=== PATIENT | female | born 1965 | race African-American/Black ===

== ENCOUNTER 2018-03-27 09:41 | Emergency (ER) | payer MEDICAID ==
[~2018-03-27] VITALS: Ht 175.3 cm; Wt 109.0 kg
[2018-03-27] MEDS ORDERED: SODIUM CHLORIDE 0.9% 1,000 ML IV ONE (10:30)
[2018-03-27] MEDS ORDERED: LORAZEPAM 1MG TABLET PO ONE (10:30)
[2018-03-27 11:30] LABS: CLARITY URINE TURBID (CLEAR); KETONES URINE TRACE (NEGATIVE); LEUKOCYTE ESTERASE URINE 3+ (NEGATIVE); NITRITE URINE POSITIVE (NEGATIVE); OCCULT BLOOD URINE 3+ (NEGATIVE); PH URINE 6.5 (4.5-8.0); PROTEIN URINE 3+ (NEGATIVE); SPECIFIC GRAVITY URINE 1.026 (1.005-1.030)
[2018-03-27 11:38] LABS: COLOR URINE BROWN (YELLOW)
[2018-03-27 12:15] LABS: BASOPHILS % 0.4 % (0.0-2.0); EOSINOPHILS % 0.7 % (0.0-5.0); HEMATOCRIT. 40.2 % (36.0-48.0); HEMOGLOBIN. 13.2 g/dL (12.0-16.0); LYMPHOCYTES % 21.8 % (20.0-50.0); MEAN CORPUSCULAR HEMOGLOBIN 27.7 pg (28.0-32.0); MEAN CORPUSCULAR VOLUME 84.3 fL (81.0-99.0); MEAN PLATELET VOLUME 8.8 fl (7.4-10.4); MONOCYTES % 5.6 % (2.0-8.0); NEUTROPHILS % 71.5 % (40.0-76.0); PLATELET 279 x1000/uL (130-400); RED BLOOD CELL COUNT 4.77 mill/uL (4.2-5.4)
[2018-03-27 12:21] LABS: CHLORIDE 111 mEq/L (98-107)
[2018-03-27] MEDS ORDERED: CEFTRIAXONE 1 G PREMIX 50 ML IV NR (12:30)
[2018-03-27 14:01] VITALS: BP 171/108
== END 2018-03-27 14:03 | disposition home or self-care (01) ==
LOC: ER 10:31
DX: N39.0 Urinary tract infection, site not specified (principal); I10 Essential (primary) hypertension; F12.10 Cannabis abuse, uncomplicated; F17.200 Nicotine dependence, unspecified, uncomplicated; F32.9 Major depressive disorder, single episode, unspecified; F41.9 Anxiety disorder, unspecified; Z98.890 Other specified postprocedural states
CPT/HCPCS: 36415; 71045; 76830; 76856; 80053; 81003; 83880; 84484; 85025; 87077; 87086; 87186; 93005; 96365; 99284; J0696; J7030

== ENCOUNTER 2019-07-10 09:05 | Emergency (ER) | payer MEDICAID ==
[~2019-07-10] VITALS: Ht 175.3 cm; Wt 110.4 kg
[~2019-07-10 09:05] MED LIST: AMLO10TA80 PO; ASPI-1497 PO; FAMO20TA8 PO; LISI-604 PO
[2019-07-10] MEDS ORDERED: ONDANSETRON HCL 4MG/2ML INJ IV STA (10:54)
[2019-07-10] MEDS ORDERED: SODIUM CHLORIDE 0.9% 1,000 ML IV ONE (10:54)
[2019-07-10] MEDS ORDERED: MORPHINE SULFATE 4 MG/ML CPJ (NOT FOR IM USE) IV STA (10:54)
[2019-07-10 11:13] LABS: BASOPHILS % 0.5 % (0.0-2.0); EOSINOPHILS % 0.9 % (0.0-5.0); HEMATOCRIT. 42.2 % (36.0-48.0); HEMOGLOBIN. 14.1 g/dL (12.0-16.0); LYMPHOCYTES % 14.7 % (20.0-50.0); MEAN CORPUSCULAR HEMOGLOBIN 27.9 pg (28.0-32.0); MEAN CORPUSCULAR VOLUME 83.7 fL (81.0-99.0); MEAN PLATELET VOLUME 8.9 fl (7.4-10.4); NEUTROPHILS % 78.9 % (40.0-76.0); PLATELET 243 x1000/uL (130-400); RED BLOOD CELL COUNT 5.05 mill/uL (4.2-5.4); RED CELL DISTRIBUTION WIDTH 15.9 % (11.6-14.6)
[2019-07-10 11:20] LABS: CHLORIDE 109 mEq/L (98-107)
[2019-07-10 11:38] LABS: CLARITY URINE CLOUDY (CLEAR); COLOR URINE YELLOW (YELLOW); KETONES URINE NEGATIVE (NEGATIVE); LEUKOCYTE ESTERASE URINE NEGATIVE (NEGATIVE); NITRITE URINE NEGATIVE (NEGATIVE); OCCULT BLOOD URINE NEGATIVE (NEGATIVE); PH URINE 5.5 (4.5-8.0); PROTEIN URINE TRACE (NEGATIVE); UROBILINOGEN URINE 0.2 E.U./dL (0.2-1.0)
[2019-07-10] MEDS ORDERED: LORAZEPAM 2MG/ML CPJ IV ONE (12:00)
[2019-07-10 12:10] LABS: PROTHROMBIN TIME 10.4 sec (9.6-11.0)
[2019-07-10] MEDS ORDERED: METRONIDAZOLE 500MG TABLET PO SCH (13:15)
[2019-07-10] MEDS ORDERED: CEFTRIAXONE 1 G PREMIX 50 ML IV SCH (13:15)
[2019-07-10 15:30] VITALS: BP 140/59
[2019-07-11] MEDS ORDERED: IOHEXOL-300 100 ML BOTTLE ONE (00:10)
== END 2019-07-10 15:46 | disposition home or self-care (01) ==
LOC: ER 09:05
DX: K57.32 Diverticulitis of large intestine without perforation or abscess without bleeding (principal); R05 Cough; I11.9 Hypertensive heart disease without heart failure; F14.10 Cocaine abuse, uncomplicated; F17.210 Nicotine dependence, cigarettes, uncomplicated; F12.10 Cannabis abuse, uncomplicated; Z71.6 Tobacco abuse counseling; Z98.890 Other specified postprocedural states; Z79.82 Long term (current) use of aspirin
CPT/HCPCS: 36415; 71045; 74177; 80053; 81003; 81025; 83690; 85025; 85610; 93005; 96365; 96375; 99285; J0696; J2060; J2270; J2405; J7030; Q9967

== ENCOUNTER 2019-12-14 12:56 | Emergency (ER) | payer MEDICAID ==
[~2019-12-14] VITALS: Ht 170.2 cm; Wt 110.0 kg
[2019-12-14 14:43] LABS: CLARITY URINE TURBID (CLEAR); COLOR URINE YELLOW (YELLOW); KETONES URINE NEGATIVE (NEGATIVE); LEUKOCYTE ESTERASE URINE 1+ (NEGATIVE); NITRITE URINE NEGATIVE (NEGATIVE); OCCULT BLOOD URINE 2+ (NEGATIVE); PH URINE 5.5 (4.5-8.0); PROTEIN URINE NEGATIVE (NEGATIVE); SPECIFIC GRAVITY URINE 1.019 (1.005-1.030); UROBILINOGEN URINE 0.2 E.U./dL (0.2-1.0)
[2019-12-14 16:41] VITALS: BP 150/87
== END 2019-12-14 16:42 | disposition home or self-care (01) ==
LOC: ER 13:07
DX: N39.0 Urinary tract infection, site not specified (principal); M54.5 Low back pain; M79.644 Pain in right finger(s); I11.9 Hypertensive heart disease without heart failure; F14.10 Cocaine abuse, uncomplicated; F12.10 Cannabis abuse, uncomplicated; Z98.890 Other specified postprocedural states; Z79.82 Long term (current) use of aspirin
CPT/HCPCS: 73130; 81003; 81025; 93005; 99285

== ENCOUNTER 2022-06-25 10:55 | Emergency (ER) | payer MEDICAID ==
[~2022-06-25] VITALS: Ht 167.6 cm; Wt 89.0 kg
[~2022-06-25 10:55] MED LIST changes: -LISI-604 PO; +LISI20TA31 PO
[2022-06-25] MEDS ORDERED: KETOROLAC 60MG/2ML VIAL IM STA (15:27)
[2022-06-25 16:10] LABS: CLARITY URINE CLEAR (CLEAR); COLOR URINE YELLOW (YELLOW); KETONES URINE TRACE (NEGATIVE); LEUKOCYTE ESTERASE URINE NEGATIVE (NEGATIVE); NITRITE URINE NEGATIVE (NEGATIVE); OCCULT BLOOD URINE NEGATIVE (NEGATIVE); PROTEIN URINE 1+ (NEGATIVE); SPECIFIC GRAVITY URINE 1.025 (1.005-1.030)
[2022-06-25 17:29] LABS: BASOPHILS % 0.4 % (0.0-2.0); EOSINOPHILS % 0.6 % (0.0-5.0); HEMATOCRIT. 47.2 % (36.0-48.0); HEMOGLOBIN. 15.8 g/dL (12.0-16.0); LYMPHOCYTES % 17.7 % (20.0-50.0); MEAN CORPUSCULAR HEMOGLOBIN 28.1 pg (28.0-32.0); MEAN CORPUSCULAR VOLUME 83.8 fL (81.0-99.0); MEAN PLATELET VOLUME 8.3 fl (7.4-10.4); MONOCYTES % 5.1 % (2.0-8.0); NEUTROPHILS % 76.2 % (40.0-76.0); PLATELET 305 x1000/uL (130-400); RED BLOOD CELL COUNT 5.64 mill/uL (4.2-5.4); RED CELL DISTRIBUTION WIDTH 15.6 % (11.6-14.6)
[2022-06-25 17:47] LABS: CHLORIDE 108 mEq/L (98-107)
[2022-06-25] MEDS ORDERED: CYCL5TAB PO (18:31)
[2022-06-25] MEDS ORDERED: NAPR-681 PO (18:31)
[2022-06-25 18:57] VITALS: BP 137/86
== END 2022-06-25 19:02 | disposition home or self-care (01) ==
LOC: ER 11:00
DX: S90.211A Contusion of right great toe with damage to nail, initial encounter (principal); R07.89 Other chest pain; R34 Anuria and oliguria; M54.50 Low back pain, unspecified; I11.9 Hypertensive heart disease without heart failure; F14.10 Cocaine abuse, uncomplicated; F12.10 Cannabis abuse, uncomplicated; Z98.890 Other specified postprocedural states; Z79.82 Long term (current) use of aspirin; W01.0XXA Fall on same level from slipping, tripping and stumbling without subsequent striking against object, initial encounter; Y93.89 Activity, other specified; Y92.018 Other place in single-family (private) house as the place of occurrence of the external cause; Y99.8 Other external cause status
CPT/HCPCS: 36415; 71045; 72100; 73660; 80053; 81003; 83880; 84484; 85025; 93005; 96372; 99285; J1885

== ENCOUNTER 2023-04-05 16:19 | Emergency (ER) | payer MEDICAID ==
[~2023-04-05] VITALS: Ht 175.3 cm; Wt 105.0 kg
[~2023-04-05 16:19] MED LIST changes: +CYCL5TAB PO; +NAPR-681 PO
[2023-04-05 16:37] VITALS: TEMP 97.7; O2SAT 100
[2023-04-05] MEDS ORDERED: LORAZEPAM 2MG/ML CPJ IV ONE (16:45)
[2023-04-05] MEDS ORDERED: KETOROLAC 15MG/ML VIAL IV ONE (16:45)
[2023-04-05 17:55] LABS: BASOPHILS % 0.3 % (0.0-2.0); EOSINOPHILS % 0.3 % (0.0-5.0); HEMOGLOBIN. 13.8 g/dL (12.0-16.0); LYMPHOCYTES % 8.4 % (20.0-50.0); MEAN CORPUSCULAR HEMOGLOBIN 27.1 pg (28.0-32.0); MEAN CORPUSCULAR HGB CONC 31.4 g/dL (31.0-37.0); MEAN CORPUSCULAR VOLUME 86.3 fL (81.0-99.0); MEAN PLATELET VOLUME 8.4 fl (7.4-10.4); MONOCYTES % 4.3 % (2.0-8.0); NEUTROPHILS % 86.7 % (40.0-76.0); PLATELET 253 x1000/uL (130-400); WHITE BLOOD COUNT 12.4 x1000/uL (4.5-11.0)
[2023-04-05 18:14] LABS: ALANINE AMINOTRANSFERASE 10 IU/L (10-49); ALBUMIN 4.2 g/dL (3.2-4.8); ASPARTATE AMINOTRANSFERASE 11 IU/L (<34); BILIRUBIN TOTAL 0.4 mg/dL (0.1-1.0); CALCIUM 9.7 mg/dL (8.7-10.4); CARBON DIOXIDE 24 mEq/L (21-32); CHLORIDE 108 mEq/L (98-107); GLUCOSE 111 mg/dL (70-105); POTASSIUM 3.8 mEq/L (3.5-5.1); PROTEIN TOTAL 7.6 g/dL (6.0-8.3); SODIUM 141 mEq/L (136-145); UREA NITROGEN BLOOD 15 mg/dL (9-23)
[2023-04-05] MEDS ORDERED: KETOROLAC 60MG/2ML VIAL IM ONE (20:30)
[2023-04-05] MEDS ORDERED: LORAZEPAM 2MG/ML CPJ IM ONE (20:30)
[2023-04-05] MEDS ORDERED: LORAZEPAM 2MG/ML SYR IM NR (20:30)
[2023-04-05 21:04] VITALS: BP 132/76; PULSE 82; RESP 20
== END 2023-04-05 21:06 | disposition home or self-care (01) ==
LOC: ER 16:19
DX: R06.02 Shortness of breath (principal); F31.9 Bipolar disorder, unspecified; I11.0 Hypertensive heart disease with heart failure; I50.9 Heart failure, unspecified; I25.2 Old myocardial infarction; F12.90 Cannabis use, unspecified, uncomplicated; F14.90 Cocaine use, unspecified, uncomplicated; Z98.890 Other specified postprocedural states
CPT/HCPCS: 99285; 71045; 80053; 83880; 85025; 36415; 93005; 96372; J1885; J2060

== ENCOUNTER 2023-06-16 07:24 | Emergency (ER) | payer MEDICAID ==
[~2023-06-16] VITALS: Ht 175.3 cm; Wt 91.0 kg
[~2023-06-16 07:24] MED LIST changes: -AMLO10TA80 PO; -ASPI-1497 PO; -CYCL5TAB PO; +DIGO-34 PO; +DILT60TA35 PO; +FURO40TA5 PO; -LISI20TA31 PO; -NAPR-681 PO; +RIVA20TA MT
[2023-06-16] MEDS: FAMOTIDINE 20MG/2ML VIAL IV STA (07:34)
[2023-06-16 07:46] VITALS: O2SAT 97
[2023-06-16 07:54] LABS: BASOPHILS % 0.3 % (0.0-2.0); EOSINOPHILS % 0.1 % (0.0-5.0); HEMATOCRIT. 35.6 % (36.0-48.0); HEMOGLOBIN. 11.1 g/dL (12.0-16.0); LYMPHOCYTES % 13.7 % (20.0-50.0); MEAN CORPUSCULAR HEMOGLOBIN 25.6 pg (28.0-32.0); MEAN CORPUSCULAR HGB CONC 31.2 g/dL (31.0-37.0); MEAN PLATELET VOLUME 7.3 fl (7.4-10.4); MONOCYTES % 4.2 % (2.0-8.0); NEUTROPHILS % 81.7 % (40.0-76.0); PLATELET 523 x1000/uL (130-400); RED BLOOD CELL COUNT 4.34 mill/uL (4.2-5.4); RED CELL DISTRIBUTION WIDTH 17.9 % (11.6-14.6); WHITE BLOOD COUNT 15.9 x1000/uL (4.5-11.0)
[2023-06-16 08:19] LABS: ALANINE AMINOTRANSFERASE 37 IU/L (10-49); ASPARTATE AMINOTRANSFERASE 22 IU/L (<34); BILIRUBIN TOTAL 0.6 mg/dL (0.1-1.0); CALCIUM 9.5 mg/dL (8.7-10.4); CARBON DIOXIDE 19 mEq/L (21-32); CHLORIDE 104 mEq/L (98-107); GLUCOSE 151 mg/dL (70-105); PROTEIN TOTAL 7.5 g/dL (6.0-8.3); SODIUM 135 mEq/L (136-145); UREA NITROGEN BLOOD 7 mg/dL (9-23)
[2023-06-16 08:25] LABS: TROPONIN I HIGH SENSITIVITY 185 ng/L (3.0-34)
[2023-06-16] MEDS: MORPHINE SULFATE 4 MG/ML CPJ (NOT FOR IM USE) IV STA (08:35)
[2023-06-16] MEDS: ONDANSETRON HCL 4MG/2ML INJ IV STA (08:36)
[2023-06-16 08:43] LABS: PROTHROMBIN TIME 11.5 sec (9.6-11.0)
[2023-06-16] MEDS: ASPIRIN 325MG EC TABLET PO ONE (09:35)
[2023-06-16] MEDS: MORPHINE SULFATE 4 MG/ML CPJ (NOT FOR IM USE) IV ONE (10:30)
[2023-06-16] MEDS ORDERED: ONDANSETRON HCL 4MG/2ML INJ IV PRN (11:45)
[2023-06-16] MEDS ORDERED: MAGNESIUM/ALUMINUM HYDROXIDE/SIMETHICONE 30ML UDC PO PRN (11:45)
[2023-06-16] MEDS ORDERED: IPRATROPIUM/ALBUTEROL 0.5-3(2.5)MG/3ML NEB HHN PRN (11:45)
[2023-06-16] MEDS ORDERED: GUAIFENESIN 200MG/10ML SUGAR FREE UDC PO PRN (11:45)
[2023-06-16] MEDS ORDERED: ACETAMINOPHEN 325MG TABLET PO PRN (11:45)
[2023-06-16] MEDS ORDERED: CLONIDINE 0.1MG TABLET PO PRN (11:45)
[2023-06-16] MEDS ORDERED: DOCUSATE SODIUM 100MG CAPSULE PO PRN (11:45)
[2023-06-16] MEDS ORDERED: METO-539 PO (12:02)
[2023-06-16 12:44] LABS: CREATINE KINASE MB FRACTION 5.5 ng/mL (0.5-3.6)
[2023-06-16] MEDS: METOPROLOL TARTRATE 50MG TABLET PO SCH (13:20)
[2023-06-16] MEDS: ENOXAPARIN 100MG/ML SYR SUBCUT SCH (13:20)
[2023-06-16] MEDS ORDERED: DILTIAZEM HCL 60MG TABLET PO SCH (14:00)
[2023-06-16] MEDS: ACETAMINOPHEN 325MG TABLET PO PRN (16:24)
[2023-06-16 16:49] LABS: CLARITY URINE TURBID (CLEAR); COLOR URINE DARK YELLOW (YELLOW); GLUCOSE URINE TRACE (NEGATIVE); KETONES URINE NEGATIVE (NEGATIVE); LEUKOCYTE ESTERASE URINE TRACE (NEGATIVE); NITRITE URINE NEGATIVE (NEGATIVE); OCCULT BLOOD URINE NEGATIVE (NEGATIVE); PROTEIN URINE 3+ (NEGATIVE); SPECIFIC GRAVITY URINE 1.032 (1.005-1.030)
[2023-06-16] MEDS: MORPHINE SULFATE 2 MG/ML CPJ (NOT FOR IM USE) IV NR (16:54)
[2023-06-16 16:58] LABS: *AMPHETAMINES SCREEN URINE NEGATIVE (NEGATIVE); *BARBITURATES SCREEN URINE NEGATIVE (NEGATIVE); *BENZODIAZEPINES SCREEN URINE NEGATIVE (NEGATIVE); *COCAINE SCREEN URINE PRESUMPTIVE POSITIVE (NEGATIVE); CANNABINOID URINE SCREEN PRESUMPTIVE POSITIVE (NEGATIVE); ECSTASY MDMA SCREEN URINE NEGATIVE (NEGATIVE); METHADONE URINE SCREEN Neg (NEGATIVE); OPIATES URINE SCREEN PRESUMPTIVE POSITIVE (NEGATIVE); PHENCYCLIDINE URINE SCREEN NEGATIVE (NEGATIVE)
[2023-06-16 17:04] LABS: BACTERIA URINE NONE SEEN; FINE GRANULAR CASTS URINE 0-5 /lpf; RBC URINE 0-2 /hpf (0-2); SQUAMOUS EPITHELIAL CELL URINE 2+ /lpf (RARE/1+)
[2023-06-16] MEDS: LABETALOL 5MG/ML SYR 20 MG/4 ML SYRINGE IV NR (17:26)
[2023-06-16] MEDS ORDERED: LABETALOL 5MG/ML SYR 20 MG/4 ML SYRINGE IV PRN (17:54)
[2023-06-16] MEDS ORDERED: HYDRALAZINE 20MG/ML VIAL IV PRN (18:00)
[2023-06-16] MEDS ORDERED: NITROGLYCERIN 0.4MG TABLET SL SL PRN (18:00)
[2023-06-16] MEDS: LORAZEPAM 2MG/ML INJ IV NR (18:49)
[2023-06-16] MEDS ORDERED: NICARDIPINE 100 MG in SODIUM CHLORIDE 0.9% 60 ML IV STA (18:52)
[2023-06-16] MEDS ORDERED: ESMOLOL 2500MG PREMIX 250 ML IV ONE ×2 (19:00→19:30)
[2023-06-16] MEDS ORDERED: NICARDIPINE 50 MG in SODIUM CHLORIDE 0.9% 230 ML IV STA (19:18)
[2023-06-16] MEDS: AMLODIPINE 5MG TABLET PO NR (19:41)
[2023-06-16] MEDS: ESMOLOL 2500MG PREMIX 250 ML IV SCH (19:51)
[2023-06-16] MEDS: NICARDIPINE 50 MG in SODIUM CHLORIDE 0.9% 230 ML IV NR (21:01)
[2023-06-17] MEDS: NICARDIPINE 40MG/200ML PREMIX 230 ML IV NR (00:50)
[2023-06-17 00:56] LABS: CREATINE KINASE MB FRACTION 8.1 ng/mL (0.5-3.6)
[2023-06-17 05:00] VITALS: TEMP 98
[2023-06-17 05:25] VITALS: BP 119/74; PULSE 76; RESP 20
[2023-06-17] MEDS ORDERED: ASPIRIN 81MG EC TABLET PO SCH (09:00)
[2023-06-17] MEDS ORDERED: IOHEXOL-350 100 ML BOTTLE ONE (15:37)
== END 2023-06-17 05:43 | disposition short-term general hospital (02) ==
LOC: ER 08:00 → EDBEDREQTM 10:07 → EDBEDREQ 10:07 → CANBEDREQ 18:51 → ER 06-17 05:43
DX: I21.4 Non-ST elevation (NSTEMI) myocardial infarction (principal); R10.13 Epigastric pain; I31.39 Other pericardial effusion (noninflammatory); I11.0 Hypertensive heart disease with heart failure; I50.9 Heart failure, unspecified; F31.9 Bipolar disorder, unspecified; Z86.73 Personal history of transient ischemic attack (TIA), and cerebral infarction without residual deficits; Z98.890 Other specified postprocedural states; F14.10 Cocaine abuse, uncomplicated; F12.10 Cannabis abuse, uncomplicated; Z79.899 Other long term (current) drug therapy; Z20.822 Contact with and (suspected) exposure to COVID-19
CPT/HCPCS: 80053; 80305; 81003; 82553 ×2; 83880; 83605; 83690; 85025; 85379; 85610; 87040; 87086; 84484 ×2; 36415; 84145; 93880; 71045; 71275; 93970; 93005; 99291; 87426; J1650; J3490 ×3; J2060; J2405; J2270 ×2; J7050; Z7610 ×3; Q9967

== ENCOUNTER 2023-07-25 02:02 | Emergency (ER) | payer MEDICAID ==
[~2023-07-25] VITALS: Ht 172.7 cm; Wt 105.0 kg
[~2023-07-25 02:02] MED LIST changes: +METO-539 PO
[2023-07-25 02:03] VITALS: TEMP 98.2; O2SAT 100
[2023-07-25] MEDS: MAGNESIUM/ALUMINUM HYDROXIDE/SIMETHICONE 30ML UDC PO ONE (02:15)
[2023-07-25] MEDS: VISCOUS LIDOCAINE 2% 15 ML UDC PO NR (02:30)
[2023-07-25] MEDS: MAGNESIUM/ALUMINUM HYDROXIDE/SIMETHICONE 30ML UDC PO NR (02:30)
[2023-07-25 02:40] LABS: BASOPHILS % 0.6 % (0.0-2.0); EOSINOPHILS % 0.4 % (0.0-5.0); HEMATOCRIT. 33.9 % (36.0-48.0); HEMOGLOBIN. 10.6 g/dL (12.0-16.0); MEAN CORPUSCULAR HGB CONC 31.2 g/dL (31.0-37.0); MEAN CORPUSCULAR VOLUME 86.5 fL (81.0-99.0); MEAN PLATELET VOLUME 7.9 fl (7.4-10.4); PLATELET 443 x1000/uL (130-400); RED BLOOD CELL COUNT 3.92 mill/uL (4.2-5.4); RED CELL DISTRIBUTION WIDTH 18.4 % (11.6-14.6); WHITE BLOOD COUNT 12.5 x1000/uL (4.5-11.0)
[2023-07-25] MEDS: ONDANSETRON HCL 4MG/2ML INJ IV STA (03:08)
[2023-07-25] MEDS: MORPHINE SULFATE 4 MG/ML INJ (FOR IV/IM USE) IV ONE ×3 (03:09→10:23)
[2023-07-25 03:29] LABS: INR 1.1; PARTIAL THROMBOPLASTIN TIME 25.7 sec (23.4-31.0); PROTHROMBIN TIME 11.8 sec (9.6-11.0)
[2023-07-25 03:49] LABS: ALANINE AMINOTRANSFERASE 10 IU/L (10-49); ALBUMIN 4.3 g/dL (3.2-4.8); ASPARTATE AMINOTRANSFERASE 12 IU/L (<34); BILIRUBIN TOTAL 0.6 mg/dL (0.1-1.0); CALCIUM 9.4 mg/dL (8.7-10.4); CARBON DIOXIDE 20 mEq/L (21-32); CHLORIDE 108 mEq/L (98-107); GLUCOSE 112 mg/dL (70-105); POTASSIUM 3.5 mEq/L (3.5-5.1); SODIUM 140 mEq/L (136-145); TROPONIN I HIGH SENSITIVITY 12 ng/L (3.0-34); UREA NITROGEN BLOOD 12 mg/dL (9-23)
[2023-07-25 03:50] LABS: ETHANOL BLOOD < 10 mg/dL (<10)
[2023-07-25] MEDS: ONDANSETRON HCL 4MG/2ML INJ IV NR (04:10)
[2023-07-25] MEDS: ACETAMINOPHEN 1000MG/100ML 100 ML IV ONE (04:10)
[2023-07-25] MEDS: IOHEXOL-350 100 ML BOTTLE ONE (04:53)
[2023-07-25 05:30] LABS: *AMPHETAMINES SCREEN URINE NEGATIVE (NEGATIVE); *BARBITURATES SCREEN URINE NEGATIVE (NEGATIVE); *BENZODIAZEPINES SCREEN URINE NEGATIVE (NEGATIVE); *COCAINE SCREEN URINE PRESUMPTIVE POSITIVE (NEGATIVE); CANNABINOID URINE SCREEN PRESUMPTIVE POSITIVE (NEGATIVE); ECSTASY MDMA SCREEN URINE NEGATIVE (NEGATIVE); METHADONE URINE SCREEN Neg (NEGATIVE); OPIATES URINE SCREEN NEGATIVE (NEGATIVE); PHENCYCLIDINE URINE SCREEN NEGATIVE (NEGATIVE)
[2023-07-25] MEDS: MORPHINE SULFATE 4 MG/ML INJ (FOR IV/IM USE) IV NR (06:48)
[2023-07-25] MEDS: HYDRALAZINE 20MG/ML VIAL IV NR (06:48)
[2023-07-25] MEDS: NICARDIPINE 40MG/200ML PREMIX 200 ML IV NR (07:15)
[2023-07-25] MEDS: NICARDIPINE 40MG/200ML PREMIX 200 ML IV STA (07:48)
[2023-07-25] MEDS: LORAZEPAM 2MG/ML INJ IV ONE (12:09)
[2023-07-26 12:31] VITALS: BP 138/86; PULSE 104; RESP 19
== END 2023-07-26 13:00 | disposition left against medical advice (07) ==
LOC: ER 02:02 → EDBEDREQ 04:29 → EDBEDREQSVC 16:40 → ER 07-26 13:00 → CANBEDREQ 07-26 19:37
DX: R07.89 Other chest pain (principal); R10.13 Epigastric pain; I11.0 Hypertensive heart disease with heart failure; I50.9 Heart failure, unspecified; F17.200 Nicotine dependence, unspecified, uncomplicated; F14.10 Cocaine abuse, uncomplicated; F31.9 Bipolar disorder, unspecified; Z86.73 Personal history of transient ischemic attack (TIA), and cerebral infarction without residual deficits; Z98.890 Other specified postprocedural states; Z79.899 Other long term (current) drug therapy
CPT/HCPCS: 80053; 80305; 80320; 83880; 83605; 83690; 85025; 85610; 85730; 84484; 36415; 74174; 71045; 71275; 93005; 96374; 96375; 96376 ×2; 99285; Q9967; Z7610 ×2; J0360; J2060; J2405; J2270; G0480; J0131

== ENCOUNTER 2023-12-29 18:05 | Emergency (ER) | payer MEDICAID ==
[~2023-12-29] VITALS: Ht 175.3 cm; Wt 110.0 kg
[2023-12-29 18:38] VITALS: TEMP 98; O2SAT 100
[2023-12-29 21:56] LABS: CLARITY URINE CLEAR (CLEAR); COLOR URINE YELLOW (YELLOW); GLUCOSE URINE NEGATIVE (NEGATIVE); KETONES URINE NEGATIVE (NEGATIVE); LEUKOCYTE ESTERASE URINE NEGATIVE (NEGATIVE); NITRITE URINE NEGATIVE (NEGATIVE); OCCULT BLOOD URINE NEGATIVE (NEGATIVE); PH URINE 5.5 (4.5-8.0); PROTEIN URINE 1+ (NEGATIVE); SPECIFIC GRAVITY URINE 1.022 (1.005-1.030); UROBILINOGEN URINE 0.2 E.U./dL (0.2-1.0)
[2023-12-29 22:14] LABS: RBC URINE 0-2 /hpf (0-2); SQUAMOUS EPITHELIAL CELL URINE 1+ /lpf (RARE/1+); WBC URINE 0-2 /hpf (0-2)
[2023-12-29 22:15] LABS: BACTERIA URINE NONE SEEN
[2023-12-29] MEDS ORDERED: ACETAMINOPHEN 325MG TABLET PO ONE (22:45)
[2023-12-29] MEDS ORDERED: CEPH500T MT (22:52)
[2023-12-29] MEDS ORDERED: PHEN-910 MT (22:52)
[2023-12-29] MEDS ORDERED: ERYT1OIN6 RIGHTEYE (22:52)
[2023-12-29] MEDS: ACETAMINOPHEN 500MG TABLET PO NR (22:55)
[2023-12-29 23:03] VITALS: BP 157/92; PULSE 92; RESP 16; O2SAT 99
== END 2023-12-29 23:09 | disposition home or self-care (01) ==
LOC: ER 18:05
DX: H00.013 Hordeolum externum right eye, unspecified eyelid (principal); E78.00 Pure hypercholesterolemia, unspecified; I10 Essential (primary) hypertension; Z98.890 Other specified postprocedural states; Z79.899 Other long term (current) drug therapy; Z88.8 Allergy status to other drugs, medicaments and biological substances
CPT/HCPCS: 81003; 99283